=== PATIENT | female | born 1990 | race African-American/Black ===

== ENCOUNTER 2019-11-18 08:34 | Emergency (ER) | payer OTHER ==
[~2019-11-18] VITALS: Ht 162.6 cm; Wt 113.0 kg
--- NOTE | 2019-11-18 09:41 | PHYS DOC ---
Past Medical History Past Medical History: No Pertinent History (PRIMITIVO JIMÉNEZ APRN) Past Surgical History: Tubal ligation (PRIMITIVO JIMÉNEZ APRN) Smoking Status: Current Every Day Smoker Alcohol Use: Occasionally (PRIMITIVO JIMÉNEZ APRN) Adult General Chief Complaint Chief Complaint: NAUSEA/VOMITING/DIARRHA HPI HPI Patient is a 29 year old female with no significant medical history who pre sents to the ED today complaining of nausea vomiting and diarrhea that began last night. Patient spent the night at the hospital taking care of the grandmother. Patient is also complaining of slight intermittent bilateral upper abdominal pain only when she vomits. Denies any hematemesis or melena. Denies any chance she is . (PRIMITIVO JIMÉNEZ APRN) Review of Systems Review of Systems Constitutional: Denies fever or chills [] Eyes: Denies change in visual acuity, redness, or eye pain [] HENT: Denies nasal congestion or sore throat [] Respiratory: Denies cough or shortness of breath [] Cardiovascular: No additional information not addressed in HPI [] GI: Reports slight abdominal pain with nausea vomiting and diarrhea, denies any hematemesis or melena. : Denies dysuria or hematuria [] Musculoskeletal: Denies back pain or joint pain [] Integument: Denies rash or skin lesions [] Neurologic: Denies headache, focal weakness or sensory changes [] All other systems were reviewed and found to be within normal limits, except as documented in this note. (PRIMITIVO JIMÉNEZ APRN) Current Medications Current Medications Current Medications Medications (Trade) Dose Ordered Sig/Tru Start Time Stop Time Status Last Admin Dose Admin Dicyclomine HCl (Bentyl) 20 mg 1X ONCE 11/18/19 09:45 11/18/19 10:19 DC 11/18/19 10:27 20 MG Famotidine (Pepcid Vial) 20 mg 1X ONCE 11/18/19 09:45 11/18/19 10:19 DC 11/18/19 10:28 20 MG Ketorolac Tromethamine (Toradol 30mg Vial) 30 mg 1X ONCE 11/18/19 09:45 11/18/19 10:19 DC 11/18/19 10:27 30 MG Ondansetron HCl (Zofran) 4 mg 1X ONCE 11/18/19 09:45 11/18/19 10:19 DC 11/18/19 10:27 4 MG Sodium Chloride 1,000 ml @ 1,000 mls/hr 1X ONCE 11/18/19 09:45 11/18/19 10:44 DC 11/18/19 10:27 1,000 MLS/HR (TAB OSEI MD) Allergies Allergies Allergies Coded Allergies Type Severity Reaction Last Updated Verified No Known Drug Allergies 11/18/19 No (TAB OSEI MD) Physical Exam Physical Exam Constitutional: Well developed, well nourished, no acute distress, non-toxic appearance. [] HENT: Normocephalic, atraumatic, bilateral external ears normal, oropharynx moist, no oral exudates, nose normal. [] Eyes: PERRLA, EOMI, conjunctiva normal, no discharge. [] Neck: Normal range of motion, no tenderness, supple, no stridor. [] Cardiovascular:Heart rate regular rhythm, no murmur [] Lungs & Thorax: Bilateral breath sounds clear to auscultation [] Abdomen: Bowel sounds normal, soft, no tenderness, no masses, no pulsatile masses. [] Skin: Warm, dry, no erythema, no rash. [] Back: No tenderness, no CVA tenderness. [] Extremities: No tenderness, no cyanosis, no clubbing, ROM intact, no edema. [] Neurologic: Alert and oriented X 3, normal motor function, normal sensory function, no focal deficits noted. [] Psychologic: Affect normal, judgement normal, mood normal. [] (PRIMITIVO JIMÉNEZ APRN) Current Patient Data Vital Signs Vital Signs Date Time Temp Pulse Resp B/P (MAP) Pulse Ox O2 Delivery O2 Flow Rate FiO2 11/18/19 09:32 98.0 70 20 146/70 (95) 99 Room Air 98.0 (TAB OSEI MD) Lab Values Laboratory Tests Test 11/18/19 09:16 11/18/19 09:45 11/18/19 09:50 POC Urine HCG, Qualitative Hcg negative (Negative) Urine Collection Type Unknown Urine Color Yellow Urine Clarity Clear Urine pH 6.0 Urine Specific [place] 1.025 Urine Protein Negative mg/dL (NEG-TRACE) Urine Glucose (UA) Negative mg/dL (NEG) Urine Ketones (Stick) Negative mg/dL (NEG) Urine Blood Negative (NEG) Urine Nitrite Negative (NEG) Urine Bilirubin Negative (NEG) Urine Urobilinogen Dipstick 0.2 mg/dL (0.2 mg/dL) Urine Leukocyte Esterase Negative (NEG) Urine RBC Occ /HPF (0-2) Urine WBC 1-4 /HPF (0-4) Urine Squamous Epithelial Cells Mod /LPF Urine Amorphous Sediment Present /HPF Urine Bacteria Few /HPF (0-FEW) Urine Mucus Mod /LPF Urine Opiates Screen Neg (NEG) Urine Methadone Screen Neg (NEG) Urine Barbiturates Neg (NEG) Urine Phencyclidine Screen Neg (NEG) Urine Amphetamine/Methamphetamine Neg (NEG) Urine Benzodiazepines Screen Neg (NEG) Urine Cocaine Screen Neg (NEG) Urine Cannabinoids Screen Pos (NEG) Urine Ethyl Alcohol Neg (NEG) White Blood Count 10.0 x10^3/uL (4.0-11.0) Red Blood Count 5.62 x10^6/uL (3.50-5.40) H Hemoglobin 14.2 g/dL (12.0-15.5) Hematocrit 43.8 % (36.0-47.0) Mean Corpuscular Volume 78 fL (79-100) L Mean Corpuscular Hemoglobin 25 pg (25-35) Mean Corpuscular Hemoglobin Concent 32 g/dL (31-37) Red Cell Distribution Width 15.4 % (11.5-14.5) H Platelet Count 346 x10^3/uL (140-400) Neutrophils (%) (Auto) 81 % (31-73) H Lymphocytes (%) (Auto) 13 % (24-48) L Monocytes (%) (Auto) 4 % (0-9) Eosinophils (%) (Auto) 2 % (0-3) Basophils (%) (Auto) 0 % (0-3) Neutrophils # (Auto) 8.1 x10^3/uL (1.8-7.7) H Lymphocytes # (Auto) 1.3 x10^3/uL (1.0-4.8) Monocytes # (Auto) 0.4 x10^3/uL (0.0-1.1) Eosinophils # (Auto) 0.2 x10^3/uL (0.0-0.7) Basophils # (Auto) 0.0 x10^3/uL (0.0-0.2) Sodium Level 141 mmol/L (136-145) Potassium Level 4.1 mmol/L (3.5-5.1) Chloride Level 105 mmol/L (98-107) Carbon Dioxide Level 24 mmol/L (21-32) Anion Gap 12 (6-14) Blood Urea Nitrogen 7 mg/dL (7-20) Creatinine 0.8 mg/dL (0.6-1.0) Estimated GFR (Cockcroft-Gault) 101.9 BUN/Creatinine Ratio 9 (6-20) Glucose Level 104 mg/dL (70-99) H Calcium Level 8.9 mg/dL (8.5-10.1) Total Bilirubin 0.4 mg/dL (0.2-1.0) Aspartate Amino Transferase (AST) 14 U/L (15-37) L Alanine Aminotransferase (ALT) 16 U/L (14-59) Alkaline Phosphatase 87 U/L (46-116) Total Protein 7.6 g/dL (6.4-8.2) Albumin 3.5 g/dL (3.4-5.0) Albumin/Globulin Ratio 0.9 (1.0-1.7) L Lipase 79 U/L (73-393) Ethyl Alcohol Level < 10 mg/dL (0-10) Laboratory Tests 11/18/19 09:50 Laboratory Tests 11/18/19 09:50 (TAB OSEI MD) EKG EKG [] (PRIMITIVO JIMÉNEZ APRN) Radiology/Procedures Radiology/Procedures [] (PRIMITIVO JIMÉNEZ APRN) Course & Med Decision Making Course & Med Decision Making Pertinent Labs and Imaging studies reviewed. (See chart for details) This is a 29-year-old female patient presented to the ED today with nausea v omiting and diarrhea that began last night. Labs are negative for any acute findings. Patient was given IV fluids, nausea medicine and dicyclomine. Feeling better. Discharged to home and supportive care measures recommended. (PRIMITIVO JIMÉNEZ APRN) Course & Med Decision Making Staff Physician Addendum: I was working in the ER during the course of this patient's visit. I was available for consultation as needed, but I was not directly involved in the care of this patient. (TAB OSEI MD) Dragon Disclaimer Dragon Disclaimer This electronic medical record was generated, in whole or in part, using a voice recognition dictation system. (PRIMITIVO JIMÉNEZ APRN) Departure Departure Impression: Primary Impression: Vomiting and diarrhea Disposition: HOME, SELF-CARE Condition: STABLE Referrals: NO PCP (PCP) STU THURSTON MD Follow-up in 1-2 weeks Patient Instructions: Diarrhea, [id number], Nausea and Vomiting, [id number] Additional Instructions: You were evaluated for nausea vomiting and diarrhea. Please push fluids, maintain good hand hygiene, take the prescribed medications as ordered. You can take Tylenol/Motrin for pain or fever. Follow-up with your own doctor or the provided doctor in 1-2 weeks. Scripts Dicyclomine Hcl (DICYCLOMINE HCL) 20 Mg Tablet 1 TAB PO TID, #30 TAB Prov: PRIMITIVO JIMÉNEZ APRN 11/18/19 Ondansetron Hcl (ZOFRAN) 4 Mg Tablet 1 TAB PO Q6HRS, #20 TAB Prov: PRIMITIVO JIMÉNEZ APRN 11/18/19 PRIMITIVO JIMÉNEZ APRN Nov 18, 2019 09:41 TAB OSEI MD Nov 18, 2019 11:21
[2019-11-18] MEDS ORDERED: DICYCLOMINE HCL 10 MG CAPSULE PO ONE (09:45)
[2019-11-18] MEDS ORDERED: IV NORMAL SALINE 1000ML BAG 1,000 ML IV ONE (09:45)
[2019-11-18] MEDS ORDERED: FAMOTIDINE 20 MG/2 ML VIAL IVP ONE (09:45)
[2019-11-18] MEDS ORDERED: ONDANSETRON PF 4 MG/2 ML VIAL. IVP ONE (09:45)
[2019-11-18] MEDS ORDERED: KETOROLAC 30 MG/ML VIAL. IVP ONE (09:45)
[2019-11-18 10:10] LABS: BILIRUBIN,URINE NEGATIVE (NEG); CLARITY,URINE CLEAR; COLOR,URINE YELLOW; NITRITE,URINE NEGATIVE (NEG); PROTEIN,URINE NEGATIVE (NEG-TRACE); UROBILINOGEN,URINE 0.2 mg/dL (0.2 mg/dL)
[2019-11-18 10:16] LABS: CALCIUM 8.9 mg/dL (8.5-10.1); CREATININE 0.8 mg/dL (0.6-1.0); GFR 101.9; POTASSIUM 4.1 mmol/L (3.5-5.1)
[2019-11-18 10:22] LABS: SQUAMOUS EPITHELIAL CELL,UR MOD /LPF
[2019-11-18 10:23] LABS: BACTERIA,URINE FEW /HPF (0-FEW); RBC,URINE OCC /HPF (0-2)
[2019-11-18 10:24] LABS: ALBUMIN 3.5 g/dL (3.4-5.0); ALBUMIN/GLOBULIN RATIO 0.9 (1.0-1.7); TOTAL BILIRUBIN 0.4 mg/dL (0.2-1.0); TOTAL PROTEIN 7.6 g/dL (6.4-8.2)
[2019-11-18 10:24] LABS: AMORPHOUS SEDIMENT,UR PRESENT /HPF
[2019-11-18 10:31] LABS: BASO % 0 % (0-3); EOS # 0.2 x10^3/uL (0.0-0.7); EOS % 2 % (0-3); HEMATOCRIT 43.8 % (36.0-47.0); HEMOGLOBIN 14.2 g/dL (12.0-15.5); LYMPH # 1.3 x10^3/uL (1.0-4.8); LYMPH % 13 % (24-48); MEAN CORPUSCULAR HEMOGLOBIN 25 pg (25-35); MEAN CORPUSCULAR HGB CONC 32 g/dL (31-37); MEAN CORPUSCULAR VOLUME 78 fL (79-100); MONO # 0.4 x10^3/uL (0.0-1.1); MONO % 4 % (0-9); NEUT # 8.1 x10^3/uL (1.8-7.7); NEUT % 81 % (31-73); PLATELET COUNT 346 x10^3/uL (140-400); RED BLOOD COUNT 5.62 x10^6/uL (3.50-5.40); RED CELL DISTRIBUTION WIDTH 15.4 % (11.5-14.5)
[2019-11-18 10:32] LABS: BARBITURATES NEG (NEG); BENZODIAZEPINES NEG (NEG); CANNABINOIDS POS (NEG); COCAINE NEG (NEG); METHADONE NEG (NEG); OPIATES NEG (NEG); PHENCYCLIDINE NEG (NEG)
[2019-11-18 10:37] LABS: AMPHETAMINE/METHAMPHETAMINE NEG (NEG)
[2019-11-18] MEDS ORDERED: DICY20TA3 PO (11:17)
[2019-11-18] MEDS ORDERED: ONDA4TAB7 PO (11:17)
[2019-11-18 11:30] VITALS: BP 142/80
== END 2019-11-18 11:56 | disposition home or self-care (01) ==
LOC: ER 08:34
DX: R11.2 Nausea with vomiting, unspecified (principal); R19.7 Diarrhea, unspecified; R10.11 Right upper quadrant pain; R10.12 Left upper quadrant pain; F17.200 Nicotine dependence, unspecified, uncomplicated; Z98.51 Tubal ligation status
CPT/HCPCS: 36415; 80053; 80307; 81001; 81025; 83690; 85025; 96361; 96374; 96375; 99285; G0480; J1885; J2405; J3490; J7030; 99284